=== PATIENT | female | born 1970 | race Caucasian/White ===

== ENCOUNTER 2024-03-29 13:41 | Inpatient (IN) | payer OTHER ==
[2024-03-29] MEDS ORDERED: LEVALBUTEROL HCL 0.63 MG/3 ML VIAL.NEB. IH ONE (16:24)
[2024-03-29] MEDS ORDERED: AZITHROMYCIN IVPB 500 MG/250 ML BAG IVPB ONE (16:24)
[2024-03-29 16:28] LABS: BASO % 0.5 % (0-2.0); EOS % 0.2 % (0-4.5); HEMATOCRIT 45.8 % (32.4-45.2); HEMOGLOBIN 15.6 GM/dL (10.7-15.3); LYMPH % 11.7 % (8-40); MCH 29.2 pg (25.7-33.7); MCHC 34.1 g/dl (32.0-36.0); MEAN CELL VOLUME 85.6 fl (80-96); MEAN PLT VOLUME 6.8 fl (7.5-11.1); MONO % 7.9 % (3.8-10.2); NEUT % 79.7 % (42.8-82.8); PLATELET COUNT 352 10^3/uL (134-434); RBC 5.36 M/mm3 (3.60-5.2); RDW 12.8 % (11.6-15.6); WHITE BLOOD COUNT 14.8 K/mm3 (4.0-10.0)
[2024-03-29 16:46] LABS: POTASSIUM 4.2 mmol/L (3.5-5.1)
[2024-03-29 16:48] LABS: CALCIUM 9.2 mg/dL (8.5-10.1)
[2024-03-29 16:49] LABS: ALBUMIN 3.7 g/dl (3.4-5.0); BLOOD UREA NITROGEN 10.6 mg/dL (7-18); MAGNESIUM 2.1 mg/dL (1.8-2.4)
[2024-03-29] MEDS: LEVALBUTEROL HCL 0.63 MG/3 ML VIAL.NEB. IH SCH (16:50)
[2024-03-29] MEDS: AZITHROMYCIN IVPB 500 MG in DEXTROSE 5%-WATER - 250 ML IVPB ONE (16:50)
[2024-03-29 16:52] LABS: CREATININE 0.7 mg/dL (0.55-1.3); PHOSPHOROUS 2.7 mg/dL (2.5-4.9)
[2024-03-29 16:53] LABS: BILIRUBIN,TOTAL 0.7 mg/dL (0.2-1); TOT PROT 7.8 g/dl (6.4-8.2)
[2024-03-29] MEDS: FUROSEMIDE 40 MG/4 ML INJECTABLE VIAL IVPUSH ONE (18:51)
[2024-03-29] MEDS ORDERED: hydrOXYzine PAMOATE 25 MG CAPSULE (FP) PO ONE (20:46)
[2024-03-29] MEDS ORDERED: LEVALBUTEROL HCL 0.31 MG/3 ML VIAL.NEB IH ONE (20:46)
[2024-03-29] MEDS ORDERED: HEPARIN NA (PORCINE) 5,000 UNITS/ML 1ML VIAL ONE (20:46)
[2024-03-29] MEDS: hydrOXYzine PAMOATE 25 MG CAPSULE (FP) PO SCH (21:24)
[2024-03-29] MEDS: LEVALBUTEROL HCL 0.31 MG/3 ML VIAL.NEB IH SCH (21:24)
[2024-03-29] MEDS: HEPARIN NA (PORCINE) 5,000 UNITS/ML 1ML VIAL SQ SCH (21:24)
[2024-03-29] MEDS ORDERED: CITALOPRAM HYDROBROMIDE 10 MG TABLET ONE (22:03)
[2024-03-29] MEDS: CITALOPRAM HYDROBROMIDE 20 MG TABLET PO SCH (22:08)
[2024-03-29 23:25] VITALS: BMI 26.6
[2024-03-29 23:27] VITALS: RESP 18
[2024-03-30] MEDS ORDERED: CITALOPRAM HYDROBROMIDE 20 MG TABLET PO SCH (10:00)
[2024-03-30 10:06] LABS: BASO % 0.5 % (0-2.0); EOS % 1.2 % (0-4.5); HEMATOCRIT 42.2 % (32.4-45.2); HEMOGLOBIN 14.4 GM/dL (10.7-15.3); LYMPH % 26.1 % (8-40); MCHC 34.2 g/dl (32.0-36.0); MEAN CELL VOLUME 84.8 fl (80-96); MEAN PLT VOLUME 7.1 fl (7.5-11.1); MONO % 9.7 % (3.8-10.2); NEUT % 62.5 % (42.8-82.8); PLATELET COUNT 340 10^3/uL (134-434); RBC 4.98 M/mm3 (3.60-5.2); RDW 12.7 % (11.6-15.6); WHITE BLOOD COUNT 8.9 K/mm3 (4.0-10.0)
[2024-03-30 10:19] LABS: POTASSIUM 3.5 mmol/L (3.5-5.1)
[2024-03-30] MEDS: buPROPion HCL 100 MG TABLET PO SCH (10:19)
[2024-03-30 10:23] LABS: BLOOD UREA NITROGEN 11.2 mg/dL (7-18); CALCIUM 8.9 mg/dL (8.5-10.1)
[2024-03-30 10:27] LABS: CREATININE 0.6 mg/dL (0.55-1.3)
[2024-03-30] MEDS: predniSONE 20 MG TABLET (UD) PO SCH (12:19)
[2024-03-30] MEDS: IPRATROPIUM BR 0.02% 0.5 MG/2.5 ML VIAL.NEB. NEB SCH (12:58)
[2024-03-30] MEDS: AMOX TR/POT CLAV 875MG/125MG TABLETS (FP) PO SCH (16:35)
[2024-03-30] MEDS: ACETAMINOPHEN 325 MG TABLET (FP) PO PRN (16:35)
[2024-03-30] MEDS: AZITHROMYCIN 250 MG TABLET PO SCH (18:04)
[2024-03-30] MEDS: ATORVASTATIN CA 20 MG TABLET (FP) PO SCH (21:13)
[2024-03-31 06:39] VITALS: BP 124/68; PULSE 68; TEMP 97.6
[2024-03-31 08:39] LABS: HEMATOCRIT 41.1 % (32.4-45.2); HEMOGLOBIN 13.9 GM/dL (10.7-15.3); MCHC 33.8 g/dl (32.0-36.0); MEAN CELL VOLUME 85.8 fl (80-96); PLATELET COUNT 328 10^3/uL (134-434); RBC 4.78 M/mm3 (3.60-5.2); RDW 12.4 % (11.6-15.6)
[2024-03-31 08:40] LABS: POTASSIUM 4.1 mmol/L (3.5-5.1)
[2024-03-31 08:48] LABS: CREATININE 0.6 mg/dL (0.55-1.3)
[2024-03-31 08:50] LABS: BILIRUBIN,TOTAL 0.5 mg/dL (0.2-1); TOT PROT 6.6 g/dl (6.4-8.2)
== END 2024-03-31 13:25 | disposition home or self-care (01) | DRG 194 ==
LOC: JER 13:41 → JERBED 17:15 → J5S 22:48
PROVIDERS: ADMIT Internal Medicine; ATTEND Internal Medicine
DX: J18.9 Pneumonia, unspecified organism (principal); J45.901 Unspecified asthma with (acute) exacerbation; F43.10 Post-traumatic stress disorder, unspecified; F41.9 Anxiety disorder, unspecified; I11.0 Hypertensive heart disease with heart failure; I50.9 Heart failure, unspecified
CPT/HCPCS: 0241U-QW; 36415; 71045-TC-FY; 71250-TC; 80048; 80053; 83735; 83880; 84100; 84484; 85025; 85027; 87040; 93005; 93010; 93306-TC; 94150; 94640; 99285-25; J1644